=== PATIENT | male | born 1995 | race Native Hawaiian/Other Pacific Islander ===

== ENCOUNTER 2018-09-05 01:34 | Emergency (ER) | payer SELFPAY ==
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
[2018-09-05 05:22] VITALS: BP 115/75; PULSE 78; RESP 16; TEMP 98.1
[2018-09-05 05:55] VITALS: O2SAT 97
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
== END 2018-09-05 05:22 | disposition home or self-care (01) ==
LOC: C.ER 01:34
DX: S60.211A Contusion of right wrist, initial encounter (principal); V89.2XXA Person injured in unspecified motor-vehicle accident, traffic, initial encounter